=== PATIENT | male | born 1960 | race Two or more races ===

== ENCOUNTER 2023-12-07 01:23 | Emergency (ER) | payer OTHER ==
[~2023-12-07] VITALS: Ht 180.3 cm; Wt 71.4 kg
[2023-12-07] MEDS: cloNIDine HCL 0.1 MG TAB PO ONE (02:13)
[2023-12-07] MEDS ORDERED: PER60TP TOP (02:53)
[2023-12-07] MEDS ORDERED: IBUP-1456 PO (02:53)
[2023-12-07 03:40] VITALS: BP 151/94; PULSE 91; RESP 20; O2SAT 99
== END 2023-12-07 03:43 | disposition home or self-care (01) ==
LOC: ER 01:23
DX: S20.211A Contusion of right front wall of thorax, initial encounter (principal); B86 Scabies; I10 Essential (primary) hypertension; W18.2XXA Fall in (into) shower or empty bathtub, initial encounter; Y93.89 Activity, other specified; Y92.89 Other specified places as the place of occurrence of the external cause; Y99.8 Other external cause status
CPT/HCPCS: 71101